=== PATIENT | male | born 1995 | race American Indian/Alaskan Native ===

== ENCOUNTER 2016-04-15 06:31 | Emergency (ER) | payer OTHER ==
[2016-04-15] MEDS ORDERED: NACL ONE (08:01)
[2016-04-15 08:14] LABS: Basophils % (Auto) 0.4 % (0.0-1.8); Eosinophils % (Auto) 0.6 % (0.0-4.3); Hematocrit 46.9 % (35.5-45.6); Hemoglobin 15.3 gm/dl (11.8-15.2); Mean Corpuscular HGB Conc 33 % (32-34); Mean Corpuscular Hemoglobin 27 pg (28-32); Mean Corpuscular Volume 82 fl (84-94); Platelet Count 197 K/mm3 (140-440); Red Blood Count 5.73 M/mm3 (3.65-5.03); White Blood Count 6.4 K/mm3 (4.5-11.0)
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
[2016-04-15 08:24] LABS: INR 1.08 (0.87-1.13); Partial Thromboplastin Time 28.2 Sec. (24.2-36.6)
[2016-04-15 08:46] LABS: Blood Urea Nitrogen 13 mg/dL (9-20); Calcium 9.3 mg/dL (8.4-10.2); Carbon Dioxide 26 mmol/L (22-30); Creatine Kinase 276 units/L (55-170); Glucose 92 mg/dL (75-100); Potassium 4.4 mmol/L (3.6-5.0); Sodium 138 mmol/L (137-145)
[2016-04-15 08:47] LABS: Alanine Aminotransferase 9 units/L (7-56); Albumin 4.5 g/dL (3.9-5); Albumin/Globulin Ratio 1.6 %; Alkaline Phosphatase 65 units/L (35-129); Bilirubin,Total 0.6 mg/dL (0.1-1.2); Total Protein 7.3 g/dL (6.3-8.2)
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
[2016-04-15 09:17] LABS: Anion Gap 17 mmol/L; Bilirubin,Direct < 0.2 mg/dL (0-0.2)
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
[2016-04-15 09:43] LABS: Bilirubin,Urine NEG (Negative); Blood,Urine NEG (Negative); Ketones,Urine NEG (Negative); Leukocyte Esterase,Urine NEG (Negative); Nitrite,Urine NEG (Negative); Protein,Urine <15 mg/dL mg/dL (Negative); Urobilinogen,Urine < 2.0 mg/dL (<2.0)
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
[2016-04-15 10:14] VITALS: BP 139/88
== END 2016-04-15 10:14 | disposition home or self-care (01) ==
LOC: ED 06:31
DX: S20.211A Contusion of right front wall of thorax, initial encounter (principal); R51 Headache; M54.2 Cervicalgia; R10.11 Right upper quadrant pain; J45.909 Unspecified asthma, uncomplicated; F17.200 Nicotine dependence, unspecified, uncomplicated; V89.2XXA Person injured in unspecified motor-vehicle accident, traffic, initial encounter; Y93.9 Activity, unspecified; Y99.9 Unspecified external cause status; Y92.410 Unspecified street and highway as the place of occurrence of the external cause
CPT/HCPCS: 36415; 70450; 71020; 71250; 72125; 74177; 80048; 80074; 81001; 82550; 84484; 85025; 85610; 85730; 86850; 86900; 86901; 99285; Q9967